=== PATIENT | male | born 1990 | race Caucasian/White ===

== ENCOUNTER 2020-08-24 22:15 | Emergency (ER) | payer OTHER ==
[~2020-08-24] VITALS: Ht 170.2 cm; Wt 59.1 kg
[2020-08-25 01:37] LABS: BASO # 0.1 10^3/uL (0.0-0.2); BASO % 0.5 % (0.0-1.0); EOS # 0.2 10^3/uL (0.0-0.5); EOS % 2.4 % (0.0-3.0); HEMATOCRIT 44.2 % (42.0-52.0); HEMOGLOBIN 14.6 g/dl (13.5-17.5); LYMPH # 2.5 10^3/uL (1.5-5.0); LYMPH % 26.5 % (24.0-44.0); MEAN CORPUSCULAR HEMOGLOBIN 29.1 pg (27.0-33.0); MONO # 1.4 10^3/uL (0.0-0.8); MONO % 14.6 % (2.0-8.0); NEUTROPHILS # 5.3 10^3/uL (1.5-8.5); NEUTROPHILS % 55.7 % (36.0-66.0); PLATELET COUNT, AUTOMATED 257 10^3/uL (150-450); RED BLOOD COUNT 5.02 10^6/uL (4.30-6.10); WHITE BLOOD COUNT 9.5 10^3/uL (4.0-10.0)
[2020-08-25] MEDS ORDERED: LIDOCAINE 5% (LIDODERM) PATCH TD ONE (01:50)
[2020-08-25] MEDS ORDERED: KETOROLAC 30 MG/ML 1ML VIAL IM ONE (01:50)
[2020-08-25] MEDS ORDERED: CYCLOBENZAPRINE 5MG TABLET PO ONE (01:50)
[2020-08-25] MEDS ORDERED: ACETAMINOPHEN 500 MG TAB PO ONE (01:50)
[2020-08-25 01:55] LABS: ERYTHROCYTE SEDIMENTATION RATE 3 mm/hr (0-15)
--- NOTE | 2020-08-25 02:05 | REPVR ---
PROCEDURE INFORMATION: Exam: XR Bilateral Hips Exam date and time: 08/25/2020 1:40 AM Age: 29 years old Clinical indication: Hip pain and pelvic pain; Bilateral; Additional info: R hip pain after falling onto L hip TECHNIQUE: Imaging protocol: XR bilateral hips. Views: 2 views of hips with pelvis when performed. COMPARISON: No relevant prior studies available. FINDINGS: Bones/joints: Unremarkable. No acute fracture. Soft tissues: Unremarkable. IMPRESSION: Negative bilateral hips and pelvis. Electronically signed by: Zaheer Sharpe On 08/25/2020 02:04:53 AM
[2020-08-25] MEDS ORDERED: LIDO5DIS41 TOP (02:21)
[2020-08-25] MEDS ORDERED: IBUP80TA PO (02:21)
[2020-08-25] MEDS ORDERED: CYCL5TAB PO (02:21)
[2020-08-25 02:32] VITALS: BP 110/67
[2020-08-25] MEDS ORDERED: **NOTE PATIENT COMMENT** MISC XX SCH (21:00)
== END 2020-08-25 02:33 | disposition home or self-care (01) ==
LOC: M ED 22:15
DX: S73.101A Unspecified sprain of right hip, initial encounter (principal); S76.011A Strain of muscle, fascia and tendon of right hip, initial encounter; X58.XXXA Exposure to other specified factors, initial encounter; Y92.39 Other specified sports and athletic area as the place of occurrence of the external cause; Y93.54 Activity, bowling
CPT/HCPCS: 36415; 73521; 80047; 85025; 85652; 86140; 96372; 99284; J1885

== ENCOUNTER 2021-06-17 21:03 | Emergency (ER) | payer OTHER ==
[~2021-06-17] VITALS: Ht 172.7 cm; Wt 61.4 kg
[~2021-06-17 21:03] MED LIST: CYCL5TAB PO; IBUP80TA PO; LIDO5DIS41 TOP
[2021-06-17 23:20] LABS: BASO # 0.1 10^3/uL (0.0-0.2); BASO % 0.8 % (0.0-1.0); EOS # 0.2 10^3/uL (0.0-0.5); HEMATOCRIT 45.8 % (42.0-52.0); HEMOGLOBIN 15.4 g/dl (13.5-17.5); LYMPH # 1.9 10^3/uL (1.5-5.0); MEAN CORPUSCULAR HEMOGLOBIN 28.5 pg (27.0-33.0); MEAN CORPUSCULAR HGB CONC 33.6 g/dl (32.0-36.5); MEAN CORPUSCULAR VOLUME 84.7 fl (80.0-96.0); MONO # 0.7 10^3/uL (0.0-0.8); MONO % 7.8 % (2.0-8.0); NEUTROPHILS # 6.5 10^3/uL (1.5-8.5); NEUTROPHILS % 69.1 % (36.0-66.0); PLATELET COUNT, AUTOMATED 236 10^3/uL (150-450); RED BLOOD COUNT 5.41 10^6/uL (4.30-6.10); WHITE BLOOD COUNT 9.5 10^3/uL (4.0-10.0)
[2021-06-17 23:39] LABS: C REACTIVE PROTEIN QUANTITATIV 0.49 MG/DL (0.00-0.30)
[2021-06-17] MEDS ORDERED: ISOVUE-370 76% 100ML VIAL As Ordered ONE (23:47)
[2021-06-17 23:48] LABS: ERYTHROCYTE SEDIMENTATION RATE 1 mm/hr (0-15)
[2021-06-18 00:13] LABS: BLOOD UREA NITROGEN 5 MG/DL (7-18); CALCIUM LEVEL 8.2 MG/DL (8.5-10.1); CARBON DIOXIDE LEVEL 28 MEQ/L (21-32); CHLORIDE LEVEL 112 MEQ/L (98-107); CREATININE FOR GFR 0.92 MG/DL (0.70-1.30); GLOMERULAR FILTRATION RATE > 60.0 (>60); GLUCOSE, FASTING 87 MG/DL (70-100); POTASSIUM SERUM 3.2 MEQ/L (3.5-5.1); SODIUM LEVEL 145 MEQ/L (136-145)
[2021-06-18] MEDS ORDERED: POTASSIUM CHLORIDE 10MEQ SR TABLET PO ONE (00:25)
[2021-06-18] MEDS ORDERED: VALT1TAB PO (01:42)
[2021-06-18] MEDS ORDERED: AMOX875T2 PO (01:42)
[2021-06-18] MEDS ORDERED: valACYclovir HCL 500 MG TAB PO ONE (01:45)
[2021-06-18] MEDS ORDERED: AUGMENTIN 875 MG TAB PO ONE (01:45)
[2021-06-18 01:54] VITALS: BP 112/60
[2021-06-22 12:12] LABS: HSV-1 DNA Negative (Negative); HSV-2 DNA Negative (Negative)
== END 2021-06-18 01:55 | disposition home or self-care (01) ==
LOC: M ED 21:03
DX: K13.0 Diseases of lips (principal); E87.6 Hypokalemia
CPT/HCPCS: 36415; 70487; 80047; 80048; 85025; 85652; 86140; 87070; 87205; 87529; 87880; 99283; Q9967